=== PATIENT | male | born 1970 | race American Indian/Alaskan Native ===

== ENCOUNTER 2017-01-11 09:36 | Emergency (ER) | payer BC ==
[2017-01-11 09:45] VITALS: RESP 18; TEMP 98.4
[2017-01-11 09:46] VITALS: BMI 28.7
[2017-01-11 10:55] LABS: BASO % 0.1 % (0.0-2.0); EOS # 0.1 K/uL (0.0-0.7); EOS % 0.7 % (0.0-4.0); HEMATOCRIT 44.1 % (35.0-51.0); LYMPH # 1.5 K/uL (1.0-4.3); LYMPH % 12.9 % (20.0-40.0); MEAN CELL VOLUME 92.1 fl (80.0-94.0); MEAN CORPUSCULAR HEMOGLOBIN 31.2 pg (27.0-31.0); MEAN CORPUSCULAR HGB CONC 33.8 g/dL (33.0-37.0); MEAN PLATELET VOLUME 8.8 fl (7.2-11.7); MONO # 0.9 K/uL (0.0-0.8); NEUT # 8.9 K/uL (1.8-7.0); NEUT % 78.3 % (50.0-75.0); RED CELL DISTRIBUTION WIDTH 14.2 % (11.5-14.5); WHITE BLOOD COUNT 11.3 K/uL (4.8-10.8)
[2017-01-11 11:25] LABS: ALB/GLOB RATIO 1.2 (1.0-2.1); ALKALINE PHOSPHATASE 97 U/L (38-126); ALT/SGPT 46 U/L (21-72); AST/SGOT 49 U/L (17-59); BILIRUBIN,TOTAL 0.6 mg/dl (0.2-1.3); BLOOD UREA NITROGEN 15 mg/dl (9-20); CALCIUM 10.1 mg/dL (8.4-10.2); CARBON DIOXIDE 29 mmol/L (22-30); CHLORIDE 98 mmol/L (98-107); GFR AFRICAN-AMERICAN > 60; GLUCOSE,RANDOM 114 mg/dL (75-110); POTASSIUM 3.9 MMOL/L (3.6-5.0); SODIUM 138 mmol/l (132-148); TOTAL PROTEIN 8.5 G/DL (6.3-8.2)
--- NOTE | 2017-01-11 11:32 | ED PDOC ---
HPI: Chest Pain Time Seen by Provider: 01/11/17 09:51 Chief Complaint (Nursing): Chest Pain Chief Complaint (Provider): chest discomfort History Per: Patient History/Exam Limitations: no limitations Onset/Duration Of Symptoms: Hrs (6) Current Symptoms Are (Timing): Still Present Severity: None Associated Symptoms: Dyspnea. denies: Nausea Modifying Factors: None Exacerbating Factors: Movement, Deep Breathing Alleviating Factors: None Additional Complaint(s): 46yo male c/o chest discomfort (centralized sharp nonradiating) and SOB, onset this morning when awoke to use bathroom. Denies cough, fever or weakness. States recently stated additional BP medication norvasc which he took last night. Takes ASA 81mg daily. States he lifted a 200lb ellipse 2 days ago, denies other exercise. Pain worsenes with movement of chest, deep breath or palpation to area. PMD Jefry Past Medical History Reviewed: Historical Data, Nursing Documentation, Vital Signs Vital Signs: Last Vital Signs Temp 98.4 F 01/11/17 09:45 Pulse 89 01/11/17 11:34 Resp 18 01/11/17 09:45 BP 127/77 01/11/17 09:45 Pulse Ox 97 01/11/17 11:34 - Medical History PMH: Back Problems, HTN, Hypercholesterolemia Denies: COPD, Chronic Kidney Disease - Surgical History Surgical History: No Surg Hx - Family History Family History: States: Hypertension Denies: [place] - Social History Current smoker - smoking cessation education provided: No Alcohol: None Drugs: Denies - Home Medications Home Medications: Ambulatory Orders Medication Instructions Recorded Aspirin [Ecotrin] 81 mg PO DAILY 01/11/17 Fluticasone Nasal [Flonase] 2 spray JERRY DAILY PRN 01/11/17 Multivitamin [Multi-Vitamin Daily] 1 tab PO DAILY 01/11/17 Naproxen [Naprosyn] 500 mg PO BID PRN #14 tablet 01/11/17 Telmisartan/Hydrochlorothiazid 1 tab PO DAILY 01/11/17 [Micardis Hct 80-12.5 mg Tablet] amLODIPine [Norvasc] 5 mg PO DAILY 01/11/17 - Allergies Allergies/Adverse Reactions: Allergies Allergy/AdvReac Type Severity Reaction Status Date / Time No Known Allergies Allergy Verified 08/11/16 07:02 Review of Systems Constitutional: Negative for: Fever, Chills Cardiovascular: Positive for: Chest Pain, Palpitations Respiratory: Negative for: Cough, Shortness of Breath Gastrointestinal: Negative for: Nausea, Vomiting Genitourinary Male: Negative for: Dysuria, Frequency Musculoskeletal: Negative for: Neck Pain, Shoulder Pain Skin: Negative for: Rash, Lesions Neurological: Negative for: Weakness, Numbness Physical Exam - Reviewed Nursing Documentation Reviewed: Yes Vital Signs Reviewed: Yes - Physical Exam Appears: Positive for: Well, Non-toxic, No Acute Distress Head Exam: Positive for: ATRAUMATIC, NORMAL INSPECTION, NORMOCEPHALIC Skin: Positive for: Normal Color, Warm, DRY Eye Exam: Positive for: EOMI, Normal appearance, PERRL ENT: Positive for: Normal ENT Inspection Neck: Positive for: Normal, Painless ROM Cardiovascular/Chest: Positive for: Regular Rate, Rhythm Respiratory: Positive for: CNT, Normal Breath Sounds Gastrointestinal/Abdominal: Positive for: Normal Exam, Bowel Sounds, Soft Back: Positive for: Normal Inspection Extremity: Positive for: Normal ROM Neurologic/Psych: Positive for: Alert, Oriented - Laboratory Results Result Diagrams: 01/11/17 10:49 01/11/17 10:49 - ECG ECG: Positive for: Interpreted By Ma ECG Rhythm: Positive for: Normal QRS, Normal ST Segment, Sinus Rhythm. Negative for: ST/T Changes Rate: 89 O2 Sat by Pulse Oximetry: 97 Pulse Ox Interpretation: Normal - Radiology X-Ray: Interpreted by Ma X-Ray Interpretation: No Acute Disease Medical Decision Making Medical Decision Making: Workup initiated for atypical chest pain, reproducible in patient w HTN. Denies family history, smoking or known hx cardiac disease. CXR, trop, CMP/CBC, CXR ordered. ASA ordered. 1215p remains w discomfort, but reproducible on palpation of chest wall. Vitals normal. Trop neg x1. DDimer neg. Total CK mildly elevated, IVF 1L initiated. CXR normal heart size and no pneumothorax on my review Trop neg x2, HEART score 2 (<1.7% MACE risk, which was explained to patient). Stable for outpatient followup. Encourage PO fluids, followup PMD within 3 days. Return ER for any new symptoms. Avoid exertion until cleared by PMD. Disposition - Clinical Impression Clinical Impression: Chest wall pain, Chest pain, Rhabdomyolysis - Patient ED Disposition Is Patient to be Admitted: No Counseled Patient/Family Regarding: Studies Performed, Diagnosis, Need For Followup, Rx Given - Disposition Disposition: Routine/Home Disposition Time: 15:19 Condition: STABLE Additional Instructions: See PMD in 1-3 days for re-eval and further testing. Return to ER for any new or worsening symptoms. Drink lots of water for next 24 hrs, avoid caffeine and alcohol. Hold any cholesterol medication and discuss with doctor before restarting. Prescriptions: Naproxen [Naprosyn] 500 mg PO BID PRN #14 tablet PRN Reason: Pain, Moderate (4-7) Instructions: Chest Pain (ED), Rhabdomyolysis (ED), Chest Wall Pain (ED)
--- NOTE | 2017-01-11 12:27 | RAD ---
HISTORY: CP COMPARISON: Comparison is made to the previous study dated 08/13/2015 TECHNIQUE: Chest PA and lateral FINDINGS: LUNGS: No evidence of new infiltrate or consolidation in the lungs. PLEURA: No significant pleural effusion identified. No pneumothorax apparent. CARDIOVASCULAR: Normal. OSSEOUS STRUCTURES: No significant abnormalities. VISUALIZED UPPER ABDOMEN: Normal. OTHER FINDINGS: None. IMPRESSION: No active disease.
[2017-01-11] MEDS ORDERED: Sodium Chloride 0.9% 1,000 ML IV STA (12:38)
[2017-01-11 16:09] VITALS: BP 137/59; PULSE 104; O2SAT 99
--- NOTE | 2017-01-11 18:41 | CARD ---
APPROVED REPORT EKG Measurement Heart [id number] <Conclusion> Normal sinus rhythm Normal ECG
== END 2017-01-11 16:13 | disposition home or self-care (01) ==
LOC: H.ER 09:36
DX: R07.9 Chest pain, unspecified (principal); M62.82 Rhabdomyolysis; E78.00 Pure hypercholesterolemia, unspecified; I10 Essential (primary) hypertension; Z79.82 Long term (current) use of aspirin
CPT/HCPCS: 71020; 80053; 82550; 83880; 84484; 85025; 85378; 85610; 85730; 93005; 96360; 99285; J1885; J7040

== ENCOUNTER 2017-06-10 17:59 | Emergency (ER) | payer BC ==
[2017-06-10 17:59] VITALS: BMI 28.7
[2017-06-10 18:09] VITALS: BP 161/90; PULSE 91; RESP 16; TEMP 98.6; O2SAT 95
[2017-06-10] MEDS ORDERED: Sodium Chloride 0.9% 1,000 ML IV STA (19:30)
[2017-06-10 19:57] LABS: BASO # 0.1 K/uL (0.0-0.2); BASO % 0.8 % (0.0-2.0); EOS # 0.1 K/uL (0.0-0.7); EOS % 1.5 % (0.0-4.0); HEMATOCRIT 39.6 % (35.0-51.0); LYMPH # 2.3 K/uL (1.0-4.3); LYMPH % 33.9 % (20.0-40.0); MEAN CELL VOLUME 91.7 fl (80.0-94.0); MEAN CORPUSCULAR HEMOGLOBIN 30.8 pg (27.0-31.0); MEAN CORPUSCULAR HGB CONC 33.5 g/dL (33.0-37.0); MEAN PLATELET VOLUME 9.5 fl (7.2-11.7); MONO # 0.8 K/uL (0.0-0.8); MONO % 11.6 % (0.0-10.0); NEUT # 3.5 K/uL (1.8-7.0); NEUT % 52.2 % (50.0-75.0); NRBC % 0.2 % (0.0-0.0); WHITE BLOOD COUNT 6.8 K/uL (4.8-10.8)
[2017-06-10 20:03] LABS: ALB/GLOB RATIO 1.2 (1.0-2.1); ALKALINE PHOSPHATASE 112 U/L (38-126); ALT/SGPT 53 U/L (21-72); AST/SGOT 56 U/L (17-59); BILIRUBIN,TOTAL 0.6 mg/dl (0.2-1.3); BLOOD UREA NITROGEN 15 mg/dl (9-20); CALCIUM 9.6 mg/dL (8.4-10.2); CARBON DIOXIDE 29 mmol/L (22-30); CHLORIDE 101 mmol/L (98-107); GFR AFRICAN-AMERICAN > 60; GLUCOSE,RANDOM 91 mg/dL (75-110); LIPASE 98 U/L (23-300); SODIUM 140 mmol/l (132-148); TOTAL PROTEIN 7.8 G/DL (6.3-8.2)
[2017-06-10 20:06] LABS: POTASSIUM 3.8 MMOL/L (3.6-5.0)
--- NOTE | 2017-06-10 20:08 | ED PDOC ---
HPI: Abdomen Time Seen by Provider: 06/10/17 19:13 Chief Complaint (Nursing): Abdominal Pain Chief Complaint (Provider): Abdominal Pain History Per: Patient History/Exam Limitations: no limitations Onset/Duration Of Symptoms: Days (x2) Current Symptoms Are (Timing): Still Present Additional Complaint(s): Mookie Roach is a 47 year old male with previous medical history of hypertension, referred to the emergency department from urgent care clinic to rule out colitis after patient was seen yesterday for right upper abdominal pain associated with right flank pain ongoing for 2 days. Patient denied any fever, chills, nausea, vomiting, diarrhea, constipation, dysuria or hematuria. PMD: none provided Past Medical History Reviewed: Historical Data, Nursing Documentation, Vital Signs Vital Signs: Last Vital Signs Temp 98.6 F 06/10/17 18: Pulse 91 H 06/10/17 18:17 Resp 16 06/10/17 18:17 BP 161/90 H 06/10/17 18: Pulse Ox 95 06/10/17 22:05 - Medical History PMH: Back Problems, HTN, Hypercholesterolemia Denies: COPD, Chronic Kidney Disease - Surgical History Surgical History: No Surg Hx - Family History Family History: States: Unknown Family Hx, Hypertension Denies: [place] - Social History Current smoker - smoking cessation education provided: No Alcohol: Occasional Drugs: Denies - Home Medications Home Medications: Ambulatory Orders Medication Instructions Recorded Aspirin [Ecotrin] 81 mg PO DAILY 01/11/17 Fluticasone Nasal [Flonase] 2 spray JERRY DAILY PRN 01/11/17 Multivitamin [Multi-Vitamin Daily] 1 tab PO DAILY 01/11/17 Naproxen [Naprosyn] 500 mg PO BID PRN #14 tablet 01/11/17 Telmisartan/Hydrochlorothiazid 1 tab PO DAILY 01/11/17 [Micardis Hct 80-12.5 mg Tablet] amLODIPine [Norvasc] 5 mg PO DAILY 01/11/17 Cyclobenzaprine [Cyclobenzaprine 10 mg PO BID #15 tab 06/10/17 HCl] Ibuprofen [Motrin Tab] 600 mg PO Q6 #30 tab 06/10/17 - Allergies Allergies/Adverse Reactions: Allergies Allergy/AdvReac Type Severity Reaction Status Date / Time No Known Allergies Allergy Verified 08/11/16 07:02 Review of Systems ROS Statement: Except As Marked, All Systems Reviewed And Found Negative Constitutional: Negative for: Fever, Chills Gastrointestinal: Positive for: Abdominal Pain (right upper). Negative for: Nausea, Vomiting, Diarrhea, Constipation Genitourinary Male: Negative for: Dysuria, Hematuria Musculoskeletal: Positive for: Back Pain (right flank) Physical Exam - Reviewed Nursing Documentation Reviewed: Yes Vital Signs Reviewed: Yes - Physical Exam Appears: Positive for: Well, Non-toxic, No Acute Distress Head Exam: Positive for: ATRAUMATIC, NORMAL INSPECTION, NORMOCEPHALIC Skin: Positive for: Normal Color Eye Exam: Positive for: Normal appearance ENT: Positive for: Normal ENT Inspection Neck: Positive for: Normal Cardiovascular/Chest: Positive for: Chest Non Tender Respiratory: Positive for: Normal Breath Sounds, Accessory Muscle Use. Negative for: Decreased Breath Sounds, Respiratory Distress Gastrointestinal/Abdominal: Positive for: Soft, Tenderness (mild RUQ; right flank). Negative for: Normal Exam, Distended, Other (Sun's sign or RLQ tenderness) Back: Positive for: Normal Inspection. Negative for: L CVA Tenderness, R CVA Tenderness Extremity: Positive for: Normal ROM. Negative for: Tenderness, Pedal Edema Neurologic/Psych: Positive for: Alert, Oriented - Laboratory Results Result Diagrams: 06/10/17 19:47 06/10/17 19:47 - ECG O2 Sat by Pulse Oximetry: 95 (RA) Pulse Ox Interpretation: Normal Medical Decision Making Medical Decision Making: Initial Impression: Musculoskeletal pain R/O gallstones; renal stones Initial Plan: * CMP * Lipase * Urine dipstick * CBC * NS 1,000ml IV 500mls/hr * Toradol 30mg IVP * Urinalysis * US gallbladder/renal Time: 2140 --US gallbladder/renal FINDINGS: Liver: The liver is echogenic suggesting fatty infiltration. No intrahepatic bile duct dilation. Gallbladder: The gallbladder is contracted. No gallstones. Common bile duct: Unremarkable as visualized 4 mm. No stones. No dilation. Pancreas: Unremarkable as visualized. Right kidney: Unremarkable measures 10.9 cm. No stones. No solid mass. No hydronephrosis. IMPRESSION: No acute findings. Contracted gallbladder. Fatty liver. Time: 2200 --Upon provider reevaluation, patient is feeling better, medically stable and requires no further treatment in the ED at this time. Patient will be discharged home with Rx for Cyclobenzapine HCL 10mg and Motrin 600mg. Counseling was provided and all questions were answered regarding diagnosis and need for follow up with PCP. There is agreement to discharge plan. Return if symptoms persist or worsen. Clinical Impression: Muscle strain Scribe Attestation: Documented by Olga Olivia, acting as a scribe for Juan Finney MD. Provider Scribe Attestation: All medical record entries made by the Scribe were at my direction and personally dictated by me. I have reviewed the chart and agree that the record accurately reflects my personal performance of the history, physical exam, medical decision making, and the department course for this patient. I have also personally directed, reviewed, and agree with the discharge instructions and disposition. Disposition - Clinical Impression Clinical Impression: Muscle strain - Patient ED Disposition Is Patient to be Admitted: No Counseled Patient/Family Regarding: Studies Performed, Diagnosis, Need For Followup, Rx Given - Disposition Referrals: Gianluca Villarreal [Outside] Disposition: Routine/Home Disposition Time: 22:00 Condition: STABLE Prescriptions: Cyclobenzaprine [Cyclobenzaprine HCl] 10 mg PO BID #15 tab Ibuprofen [Motrin Tab] 600 mg PO Q6 #30 tab Instructions: Muscle Strain (ED) Forms: [employer] (Swedish)
[2017-06-10 20:20] LABS: RBC URINE 3 /hpf (0-3); URINE BILIRUBIN NEGATIVE (NEGATIVE); URINE BLOOD NEGATIVE (NEGATIVE); URINE COLOR YELLOW (YELLOW); URINE GLUCOSE (UA) NEG (Normal); URINE KETONE NEGATIVE (NEGATIVE); URINE LEUKOCYTE ESTERASE NEG Leu/uL (Negative); URINE PROTEIN NEGATIVE (NEGATIVE); URINE UROBILINOGEN 0.2-1.0 mg/dL (0.2-1.0); WBC URINE 1 /hpf (0-5)
--- NOTE | 2017-06-11 09:14 | US ---
HISTORY: Right upper quadrant, R flank pain COMPARISON: None. TECHNIQUE: Grayscale imaging was performed. FINDINGS: LIVER: Measures 16.5 cm in length. There is diffuse increased echogenicity of the liver parenchyma. No mass. No intrahepatic bile duct dilatation. GALLBLADDER: The gallbladder is contracted. COMMON BILE DUCT: Measures 4.0 mm. No stones. No dilatation. PANCREAS: Unremarkable as visualized. No mass. No ductal dilatation. RIGHT KIDNEY: Measures 10.9 cm in length. Normal echogenicity. No calculus, mass, or hydronephrosis. AORTA: No aneurysmal dilatation. IVC: Unremarkable. OTHER FINDINGS: None . IMPRESSION: 1. Diffuse increased echogenicity in the liver may reflect hepatic steatosis however parenchymal infectious/ inflammatory etiologies cannot be entirely excluded. Clinical and laboratory correlation is advised. 2. The gallbladder is contracted. This finding could be related to nonfasting status or chronic cholecystitis. If clinically indicated, further evaluation with HIDA scan may be performed to exclude cholecystitis. A preliminary report was provided by [employer].
== END 2017-06-10 22:17 | disposition home or self-care (01) ==
LOC: H.ER 17:59
DX: R10.9 Unspecified abdominal pain (principal); E78.00 Pure hypercholesterolemia, unspecified; I10 Essential (primary) hypertension; K76.0 Fatty (change of) liver, not elsewhere classified
CPT/HCPCS: 76705; 76770; 80053; 81003; 83690; 85025; 96374; 99283; J1885; J7040

== ENCOUNTER 2018-05-04 19:05 | Emergency (ER) | payer BC ==
[2018-05-04 19:05] VITALS: BMI 28.7
[2018-05-04 19:26] VITALS: O2SAT 100
--- NOTE | 2018-05-04 19:33 | ED PDOC ---
HPI: General Adult Time Seen by Provider: 05/04/18 19:33 Chief Complaint (Nursing): Trauma Chief Complaint (Provider): head trauma History Per: Patient Additional Complaint(s): 48 year old male presents with headache s/p a heavy piece of metal falling on top of his head. Patient states he did not sustain LOC but has severe headache at presents. He feels dizzy and nauseous but has not vomited. Patient denies any vision changes. PMD: Dr. Jaime Brooks Past Medical History Reviewed: Historical Data, Nursing Documentation, Vital Signs Vital Signs: Last Vital Signs Temp 98.8 F 05/04/18 19:22 Pulse 81 05/04/18 19:22 Resp 18 05/04/18 19:22 BP 146/90 05/04/18 19:22 Pulse Ox 100 05/04/18 20:39 - Medical History PMH: Back Problems, HTN, Hypercholesterolemia - Family History Family History: States: Unknown Family Hx - Living Arrangements Living Arrangements: With Family - Social History Current smoker - smoking cessation education provided: No Alcohol: None Drugs: Denies - Home Medications Home Medications: Ambulatory Orders Medication Instructions Recorded Aspirin [Ecotrin] 81 mg PO DAILY 01/11/17 Fluticasone Nasal [Flonase] 2 spray JERRY DAILY PRN 01/11/17 Multivitamin [Multi-Vitamin Daily] 1 tab PO DAILY 01/11/17 Naproxen [Naprosyn] 500 mg PO BID PRN #14 tablet 01/11/17 Telmisartan/Hydrochlorothiazid 1 tab PO DAILY 01/11/17 [Micardis Hct 80-12.5 mg Tablet] amLODIPine [Norvasc] 5 mg PO DAILY 01/11/17 Cyclobenzaprine [Cyclobenzaprine 10 mg PO BID #15 tab 06/10/17 HCl] Ibuprofen [Motrin Tab] 600 mg PO Q6 #30 tab 06/10/17 Naproxen [Naprosyn] 500 mg PO BID #20 tab 05/04/18 - Allergies Allergies/Adverse Reactions: Allergies Allergy/AdvReac Type Severity Reaction Status Date / Time No Known Allergies Allergy Verified 05/04/18 19:22 Review of Systems ROS Statement: Except As Marked, All Systems Reviewed And Found Negative Neurological: Positive for: Other (head injury with no LOC) Physical Exam - Reviewed Nursing Documentation Reviewed: Yes Vital Signs Reviewed: Yes - Physical Exam Appears: Positive for: Well Head Exam: Positive for: NORMAL INSPECTION, NORMOCEPHALIC. Negative for: ATRAUMATIC Skin: Positive for: Normal Color. Negative for: Rash Eye Exam: Positive for: Normal appearance ENT: Positive for: Normal ENT Inspection Neck: Positive for: Normal. Negative for: Pain On Movement Of Neck Cardiovascular/Chest: Positive for: Regular Rate, Rhythm Respiratory: Positive for: Normal Breath Sounds. Negative for: Wheezing, Respiratory Distress Back: Positive for: Normal Inspection Extremity: Positive for: Normal ROM Neurologic/Psych: Positive for: Alert, distribution specialist II-XII (grossly intact), Oriented, Gait (steady). Negative for: Motor/Sensory Deficits, Aphasia, Facial Droop - ECG O2 Sat by Pulse Oximetry: 100 Pulse Ox Interpretation: Normal - Other Rad CT head X-Ray: Read By Radiologist X-Ray Interpretation: no acute finding Medical Decision Making Medical Decision Makin48 y/o with head injury Plan: CT head PO tylenol CT head demonstrates no acute finding. Patient reports no improvement headache after Tylenol was given, Naprosyn dose provided. Prescription for Naprosyn also given. Patient was advised to follow-up with primary doctor in 2-3 days. Disposition - Clinical Impression Clinical Impression: Head injury - Patient ED Disposition Is Patient to be Admitted: No Counseled Patient/Family Regarding: Studies Performed, Diagnosis, Need For Followup, Rx Given - Disposition Referrals: Camila Capps MD [Family Provider] - Disposition Time: 21:02 Condition: STABLE Additional Instructions: Take rx meds as directed. Follow up with primary care doctor in 2-3 days Prescriptions: Naproxen [Naprosyn] 500 mg PO BID #20 tab Instructions: Closed Head Injury, Head Injury Observation (DC) Forms: [employer] (Belizean)
[2018-05-04] MEDS ORDERED: Naproxen 500 MG TAB PO STA (20:58)
[2018-05-04 21:08] VITALS: BP 135/82; PULSE 74; RESP 17; TEMP 98.2
--- NOTE | 2018-05-05 08:04 | CT ---
EXAM: CT Head Without Intravenous Contrast CLINICAL HISTORY: 48 years old, male; Injury or trauma; Injury W/c head injury; Initial encounter; Blunt trauma (contusions or hematomas) TECHNIQUE: Axial computed tomography images of the head/brain without intravenous contrast. All CT scans at this facility use at least one of these dose optimization techniques: automated exposure control; mA and/or kV adjustment per patient size (includes targeted exams where dose is matched to clinical indication); or iterative reconstruction. Coronal and sagittal reformatted images were created and reviewed. COMPARISON: CT - HEAD W/O CONTRAST 08/13/2015 6:38 PM FINDINGS: Brain: No hemorrhage. No significant periventricular microischemic changes. No edema. Ventricles: Appropriate for patient's age. Bones/joints: No acute fracture. Soft tissues: No radiopaque foreign body. Sinuses: No acute sinusitis. Mastoid air cells: No mastoid effusion. IMPRESSION: No acute CT intracranial abnormalities.
== END 2018-05-04 21:08 | disposition home or self-care (01) ==
LOC: H.ER 19:05
DX: S09.90XA Unspecified injury of head, initial encounter (principal); W22.8XXA Striking against or struck by other objects, initial encounter; Y92.89 Other specified places as the place of occurrence of the external cause; E78.00 Pure hypercholesterolemia, unspecified; I10 Essential (primary) hypertension